=== PATIENT | female | born 1990 | race Asian ===

== ENCOUNTER 2020-01-05 07:43 | Emergency (ER) | payer OTHER ==
[~2020-01-05] VITALS: Ht 157.5 cm; Wt 77.3 kg
[2020-01-05] MEDS ORDERED: methylPREDNISolone SOD SUCC PF 125 MG/2 ML VIAL. ONE (07:59)
--- NOTE | 2020-01-05 08:03 | PHYS DOC ---
Past History Past Medical History: Anxiety, Depression, Ovarian Cyst Past Surgical History: Appendectomy, Cholecystectomy, Tonsillectomy Smoking: Cigarettes Alcohol Use: Rarely Drug Use: None General Adult EDM: Chief Complaint: ALLERGIC REACTION HPI: HPI: Patient is a 29 year old female who presents for evaluation of throat swelling, hives and generalized itching. Patient had initial onset of symptoms 3 days ago. She was treated with Benadryl at that time. Today she states the symptoms worsened and returned and she also has moderate dizziness. Before arrival here she had some mild wheezing. However her vital signs are normal. Cause of this allergic response is unclear. Patient moderately anxious on arrival but did drive herself to the hospital. Patient had been hyperventilating prior to arrival Review of Systems: Review of Systems: Constitutional: Denies fever or chills Eyes: Denies change in visual acuity HENT: Denies nasal congestion mild sore throat Respiratory: Denies cough has mild shortness of breath Cardiovascular: Denies chest pain or edema GI: Denies abdominal pain, nausea, vomiting, bloody stools or diarrhea : Denies dysuria Musculoskeletal: Denies back pain or joint pain Integument: diffuse itching rash Neurologic: Denies headache, focal weakness or sensory changes Endocrine: Denies polyuria or polydipsia Lymphatic: Denies swollen glands Psychiatric: Denies depression has anxiety Heart Score: Risk Factors: Risk Factors: DM, Current or recent (<one month) smoker, HTN, HLP, family history of CAD, obesity. Risk Scores: Score 0 - 3: 2.5% MACE over next 6 weeks - Discharge Home Score 4 - 6: 20.3% MACE over next 6 weeks - Admit for Clinical Observation Score 7 - 10: 72.7% MACE over next 6 weeks - Early Invasive Strategies Physical Exam: PE: Constitutional: Well developed, well nourished, mild acute distress, non-toxic appearance. [] HENT: Normocephalic, atraumatic, bilateral external ears normal, oropharynx moist, no oral exudates, nose normal, no significant posterior pharyngeal edema, redness or swelling [] Eyes: PERRL, EOMI, conjunctiva normal, no discharge. [] Neck: Normal range of motion, no tenderness, supple, no stridor. [] Cardiovascular:Heart rate regular rhythm, no murmur [] Lungs & Thorax: Bilateral breath sounds clear to auscultation [] Abdomen: Bowel sounds normal, soft, no tenderness, no masses, no pulsatile masses. [] Skin: Warm, dry, erythema from sunburn to head and trunk, mild hives diffuse. [] Back: No tenderness. [] Extremities: No tenderness, no cyanosis, no clubbing, ROM intact, no edema. [] Neurologic: Alert and oriented X 3, normal motor function, normal sensory function, no focal deficits noted. [] Psychologic: Affect normal, judgement normal, mood abnormal, moderately anxious on arrival [] Current Patient Data: Labs: Laboratory Tests Test 01/05/20 08:09 01/05/20 08:21 Urine Collection Type Unknown Urine Color Yellow Urine Clarity Clear Urine pH 7.0 Urine Specific [place] 1.020 Urine Protein Neg Urine Glucose (UA) Neg mg/dL Urine Ketones (Stick) Neg mg/dL Urine Blood Trace Urine Nitrite Neg Urine Bilirubin Neg Urine Urobilinogen Dipstick 0.2 mg/dL Urine Leukocyte Esterase Neg Urine RBC 3-5 /HPF Urine WBC Occ /HPF Urine Squamous Epithelial Cells Many /LPF Urine Bacteria 0 /HPF Bedside Urine HCG, Qualitative hcg negative Current Medications Medications (Trade) Dose Ordered Sig/Fritz Route PRN Reason Start Time Stop Time Status Last Admin Dose Admin Methylprednisolone Sodium Succinate (SOLU-Medrol 125MG VIAL) 125 mg 1X ONCE IM 01/05/20 08:10 01/05/20 08:11 DC 01/05/20 08:26 Methylprednisolone Sodium Succinate (SOLU-Medrol 125MG VIAL) 125 mg STK-MED ONCE .ROUTE 01/05/20 07:59 01/05/20 07:59 DC EKG: EKG: [] Radiology/Procedures: Radiology/Procedures: [] Course & Med Decision Making: Course & Med Decision Making Pertinent Labs and Imaging studies reviewed. (See chart for details) [] Dragon Disclaimer: Dragon Disclaimer: This electronic medical record was generated, in whole or in part, using a voice recognition dictation system. Departure Departure: Impression: Primary Impression: Allergic reaction Qualified Codes: T78.40XA - Allergy, unspecified, initial encounter Additional Impressions: Throat swelling Sunburn Disposition: HOME/RESIDENCE PRIOR TO ADM Condition: STABLE Referrals: PCP,NO (PCP) FERDINAND JAY MD Patient Instructions: Allergy Skin Testing, Allergy Tests, Sunburn Additional Instructions: Continues to take either Benadryl or the prescription antihistamine hydroxyzine for itching. Steroids added as well which you could start as early as tomorrow Scripts Hydroxyzine Hcl (HYDROXYZINE HCL) 25 Mg Tablet 1 TAB PO TID for itching, #30 TAB Prov: XIOMARA MURRIETA DO 01/05/20 Methylprednisolone (MEDROL) 4 Mg Tab.ds.pk 1 PKG PO UD for allergies, #1 PKG Prov: XIOMARA MURRIETA DO 01/05/20 Justification of Admission: Justification of Admission: Justification of Admission Dx: N/A XIOMARA MURRIETA DO Jan 05, 2020 08:03
[2020-01-05] MEDS ORDERED: methylPREDNISolone SOD SUCC PF 125 MG/2 ML VIAL. IM ONE (08:10)
[2020-01-05 08:52] LABS: BACTERIA,URINE 0 /HPF (0-FEW); BILIRUBIN,URINE NEG (NEG); CLARITY,URINE CLEAR; COLOR,URINE YELLOW; GLUCOSE,URINE NEG (NEG); NITRITE,URINE NEG (NEG); SQUAMOUS EPITHELIAL CELL,UR MANY /LPF; UROBILINOGEN,URINE 0.2 mg/dL (0.2 mg/dL); WBC,URINE OCC /HPF (0-4)
[2020-01-05 09:00] VITALS: BP 111/66
[2020-01-05] MEDS ORDERED: METH4TAB2 PO (09:01)
[2020-01-05] MEDS ORDERED: HYDR25TA PO (09:01)
== END 2020-01-05 09:11 | disposition home or self-care (01) ==
LOC: ER 07:43
DX: T78.40XA Allergy, unspecified, initial encounter (principal); L55.9 Sunburn, unspecified; J39.2 Other diseases of pharynx; R42 Dizziness and giddiness; F41.9 Anxiety disorder, unspecified; F32.9 Major depressive disorder, single episode, unspecified; F17.210 Nicotine dependence, cigarettes, uncomplicated; X58.XXXA Exposure to other specified factors, initial encounter
CPT/HCPCS: 81001; 81025; 96372; 99283; J2930

== ENCOUNTER 2020-05-02 09:55 | Emergency (ER) | payer OTHER ==
[~2020-05-02] VITALS: Ht 157.5 cm; Wt 77.3 kg
[~2020-05-02 09:55] MED LIST: HYDR25TA PO; METH4TAB2 PO
--- NOTE | 2020-05-02 10:28 | PHYS DOC ---
Past History Past Medical History: Anxiety, Depression, Ovarian Cyst Additional Past Medical Histor: Polycystic ovarian disease Past Surgical History: Appendectomy, Cholecystectomy, Tonsillectomy Smoking: Cigarettes Alcohol Use: Rarely Drug Use: None General Adult EDM: Chief Complaint: n/v HPI: HPI: Patient is a 29-year-old female who began having nausea and vomiting 4 days ago after donating plasma. Patient then began having right flank pain that is currently 5 out of 10 and describes the discomfort. Pain is nonradiating. Pain is worse with activity and movement. Patient denies any focal weakness or numbness. Patient had nausea vomiting to the tune of 12 episodes of the last 4 days. Patient has had some subjective fever and chills as well. Patient also has had hematuria. Patient also describes some vertiginous dizziness and off- balance sensation. These are worse with activity. Review of Systems: Review of Systems: Constitutional: Complains of subjective fever and chills Eyes: Denies change in visual acuity HENT: Denies nasal congestion or sore throat Respiratory: Denies cough or shortness of breath Cardiovascular: Denies chest pain or edema GI: Complains abdominal pain with nausea vomiting but no diarrhea : Denies dysuria Musculoskeletal: Complains of right flank pain Integument: Denies rash Neurologic: Denies headache, focal weakness or sensory changes, complains of dizziness Endocrine: Denies polyuria or polydipsia Lymphatic: Denies swollen glands Psychiatric: Denies depression or anxiety Allergies: Allergies: Allergies Coded Allergies Type Severity Reaction Last Updated Verified prochlorperazine Allergy Unknown 05/02/20 Yes Physical Exam: PE: Constitutional: Well developed, well nourished, no acute distress, non-toxic appearance. [] HENT: Normocephalic, atraumatic, bilateral external ears normal, oropharynx mois t, no oral exudates, nose normal. [] Eyes: PERRLA, EOMI, conjunctiva normal, no discharge. [] Neck: Normal range of motion, no tenderness, supple, no stridor. [] Cardiovascular:Heart rate regular rhythm, no murmur [] Lungs & Thorax: Bilateral breath sounds clear to auscultation [] Abdomen: Bowel sounds normal, soft, no tenderness, no masses, no pulsatile masses. [] Skin: Warm, dry, no erythema, no rash. [] Back: No tenderness, no CVA tenderness. [] Extremities: No tenderness, no cyanosis, no clubbing, ROM intact, no edema. [] Neurologic: Alert and oriented X 3, normal motor function, normal sensory function, no focal deficits noted. [] Psychologic: Affect normal, judgement normal, mood normal. [] EKG: EKG: EKG interpreted by me normal sinus rhythm rate of 77 normal axis normal intervals normal ST segments [] Radiology/Procedures: Radiology/Procedures: [][address] [address] IMAGING REPORT Signed PATIENT: PETER LOPEZ ACCOUNT: [id number] : 1990 LOCATION: ER AGE: 29 SEX: F EXAM STATUS: REG ER ORD. PHYSICIAN: LEÓN BURCH MD REASON: r flank pain, hematuria PROCEDURE: CT ABDOMEN PELVIS WO CONTRAST INDICATION: Reason: r flank pain, hematuria / Spl. Instructions: / History: . COMPARISON: None. TECHNIQUE: Axial CT images obtained through the abdomen and pelvis without contrast. One or more of the following individualized dose reduction techniques were utilized for this examination: 1. Automated exposure control; 2. Adjustment of the mA and/or kV according to patient size; 3. Use of iterative reconstruction technique. FINDINGS: Abdominal aorta is not aneurysmal. Small fat-containing umbilical hernia. No intrahepatic bile duct dilatation. Postcholecystectomy changes. No peripancreatic fluid collection. No perisplenic hematoma. No left-sided hydronephrosis. Urinary bladder partially distended. Nonobstructive right renal stone. Measures approximately 2-3 mm. No hydronephrosis. No periappendiceal inflammatory changes. No dilated loops of bowel to suggest obstruction. IMPRESSION: * Nonobstructive right renal stone without hydronephrosis. * No evidence of appendicitis or bowel obstruction. Electronically signed by: Mindi Jackson MD (05/02/2020 11:38 AM) [id number] DICTATED AND SIGNED BY: MINDI JACKSON MD DATE: 05/02/20 1138 CC: LEÓN BURCH MD; CRESCENCIOYOSHI ~MTH0 [address] [address] IMAGING REPORT Signed PATIENT: PETER LOPEZ ACCOUNT: [id number] : 1990 LOCATION: ER AGE: 29 SEX: F EXAM STATUS: REG ER ORD. PHYSICIAN: LEÓN BURCH MD REASON: dizzy PROCEDURE: PORTABLE CHEST 1V Examination: PORTABLE CHEST 1V History: Reason: dizzy / Comparison/Correlation: None Findings: Portable upright frontal view of the chest was obtained. Heart size and pulmonary vasculature are normal. No infiltrate or effusion. Bony structures are intact. No pneumothorax. Curvilinear densities overlying the left upper paraspinal region are present. These may be external to the patient. Correlate with intervention alternatively. Right upper quadrant surgical clips are present. Impression: No active disease. Electronically signed by: Misael Lauren MD (05/02/2020 11:33 AM) [id number] DICTATED AND SIGNED BY: MISAEL LAUREN MD DATE: 05/02/20 1133 CC: LEÓN BURCH MD; CRESCENCIOYOSHI ~MTH0 0 Heart Score: Risk Factors: Risk Factors: DM, Current or recent (<one month) smoker, HTN, HLP, family history of CAD, obesity. Risk Scores: Score 0 - 3: 2.5% MACE over next 6 weeks - Discharge Home Score 4 - 6: 20.3% MACE over next 6 weeks - Admit for Clinical Observation Score 7 - 10: 72.7% MACE over next 6 weeks - Early Invasive Strategies Course & Med Decision Making: Course & Med Decision Making Pertinent Labs and Imaging studies reviewed. (See chart for details) [] 29-year-old female presents with multiple complaints. Primarily patient has right flank pain with nausea vomiting. Patient has a right renal stone but no ureteral stone. Patient reassessed at 12:38 PM and pain is 0. Patient's work- up is reassuring other than her hematuria. Patient was treated with a antibiotic for hematuria and antiemetics. Patient's otherwise clinically stable and for discharge. Return precautions given Dragon Disclaimer: Dragon Disclaimer: This electronic medical record was generated, in whole or in part, using a voice recognition dictation system. Departure Departure: Impression: Primary Impression: Hematuria Additional Impressions: Right renal stone Nausea & vomiting Dizziness Disposition: 01 DC HOME SELF CARE/HOMELESS Condition: STABLE Referrals: YOSHI PRATHER (PCP) 2-3 days Patient Instructions: Dizziness, Hematuria, Adult, Nausea and Vomiting, Urinary Tract Infection Additional Instructions: EMERGENCY DEPARTMENT GENERAL DISCHARGE INSTRUCTIONS THANK YOU for coming to [facility] Emergency Department (ED) today and trusting us with your care. We trust that you had a positive experience in our Emergency Department. If you wish to speak to the department Management you can contact the emergency department at YOUR FOLLOW UP INSTRUCTIONS ARE FOLLOWS: Do you have a private doctor? If you do not have a private doctor, please ask for a resource list of physicians or clinics that may be able to assist you with follow up care . The Emergency Physician has interpreted your x-rays. The X-ray specialist will also review them. If there is a change in the findings you will be notified in 48 hours when at all possible. A lab test or lab culture may have been done, your results will be reviewed and you will be notified if you need a change in treatment. ADDITIONAL INSTRUCTIONS AND INFORMATION Your care today has been supervised by a physician who is specially trained in emergency care. Many problems require more than one evaluation for a complete diagnosis and treatment. We recommend that you schedule your follow up appointment as recommended to ensure complete treatment of your illness or injury. If you are unable to obtain follow up care and continue to have a problem, or if your condition worsens we recommend that you return to the ED. We are not able to safely determine your condition over the phone nor are we able to give sound medical advice over the phone. For these safety reasons, if you call for medical advice we will ask you to come to the ED for further evaluation If you have any questions regarding these discharge instructions please call the ED at SAFETY INFORMATION In the interest of safety, wellness, and injury prevention; we encourage you to wear your seatbelt, if you smoke; quit smoking, and we encourage your family to use protective helmet for bicycling and other sporting events that present an increased risk for head injury. IF YOUR SYMPTOMS WORSEN OR NEW SYMPTOMS DEVELOP, OR YOU HAVE CONCERNS ABOUT YOUR CONDITION; OR IF YOUR CONDITION WORSENS WHILE YOU ARE WAITING FOR YOUR FOLLOW UP APPOINTMENT; EITHER CONTACT YOUR PRIMARY CARE DOCTOR, THE PHYSICIAN WHOSE NAME AND NUMBER YOU WERE GIVEN, OR RETURN TO THE ED IMMEDIATELY. Scripts Ondansetron Hcl (ZOFRAN) 4 Mg Tablet 1 TAB PO PRN Q6-8HRS for nausea, #12 TAB Prov: LEÓN BURCH MD 05/02/20 Cephalexin (KEFLEX) 500 Mg Capsule 500 MG PO TID for hematuria for 7 Days, #21 TAB Prov: LEÓN BURCH MD 05/02/20 LEÓN BURCH MD May 02, 2020 10:28
[2020-05-02] MEDS ORDERED: IV NORMAL SALINE 1,000ML 1,000 ML IV ONE (10:30)
[2020-05-02] MEDS ORDERED: KETOROLAC 15 MG/ML VIAL. IVP ONE (10:30)
[2020-05-02] MEDS ORDERED: ONDANSETRON PF 4 MG/2 ML VIAL. IVP ONE (10:30)
--- NOTE | 2020-05-02 10:58 | EKG ---
[address] [address] Test Date: 2020-05-02 Test Time: 10:54:00 Pat Name: PETER LOPEZ Department: Room: Gender: F Single Stayer Operator: BERNADETTE : 1990 Requested By: LEÓN BURCH Order Number: [id number] Reading MD: Measurements Intervals [place] Rate: 77 P: 0 IN: 146 QRS: 47 QRSD: 78 T: 29 QT: 362 QTc: 411 Interpretive Statements SINUS RHYTHM NORMAL ECG RI6.02 No previous ECG available for comparison
[2020-05-02 11:12] LABS: BASO % 1 % (0-3); EOS # 0.1 x10^3/uL (0.0-0.7); EOS % 2 % (0-3); HEMATOCRIT 43.3 % (36.0-47.0); HEMOGLOBIN 14.4 g/dL (12.0-15.5); LYMPH # 1.6 x10^3/uL (1.0-4.8); LYMPH % 31 % (24-48); MEAN CORPUSCULAR HEMOGLOBIN 32 pg (25-35); MEAN CORPUSCULAR HGB CONC 33 g/dL (31-37); MEAN CORPUSCULAR VOLUME 95 fL (79-100); MONO # 0.3 x10^3/uL (0.0-1.1); MONO % 7 % (0-9); NEUT # 3.2 x10^3uL (1.8-7.7); NEUT % 60 % (31-73); PLATELET COUNT 218 x10^3/uL (140-400); RED BLOOD COUNT 4.56 x10^6/uL (3.50-5.40); RED CELL DISTRIBUTION WIDTH 12.5 % (11.5-14.5); WHITE BLOOD COUNT 5.3 x10^3/uL (4.0-11.0)
[2020-05-02 11:20] LABS: CALCIUM 9.2 mg/dL (8.5-10.1); CREATININE 0.8 mg/dL (0.6-1.0); GFR 84.8; POTASSIUM 4.1 mmol/L (3.5-5.1)
[2020-05-02 11:25] LABS: ALBUMIN 3.6 g/dL (3.4-5.0); TOTAL BILIRUBIN 0.2 mg/dL (0.2-1.0); TOTAL PROTEIN 7.1 g/dL (6.4-8.2)
--- NOTE | 2020-05-02 11:36 | RAD ---
Examination: PORTABLE CHEST 1V History: Reason: dizzy / Comparison/Correlation: None Findings: Portable upright frontal view of the chest was obtained. Heart size and pulmonary vasculature are normal. No infiltrate or effusion. Bony structures are intact. No pneumothorax. Curvilinear densities overlying the left upper paraspinal region are present. These may be external to the patient. Correlate with intervention alternatively. Right upper quadrant surgical clips are present. Impression: No active disease. Electronically signed by: Misael Ac MD (05/02/2020 11:33 AM) [id number]
--- NOTE | 2020-05-02 11:41 | RAD ---
INDICATION: Reason: r flank pain, hematuria / Spl. Instructions: / History: . COMPARISON: None. TECHNIQUE: Axial CT images obtained through the abdomen and pelvis without contrast. One or more of the following individualized dose reduction techniques were utilized for this examination: 1. Automated exposure control; 2. Adjustment of the mA and/or kV according to patient size; 3. Use of iterative reconstruction technique. FINDINGS: Abdominal aorta is not aneurysmal. Small fat-containing umbilical hernia. No intrahepatic bile duct dilatation. Postcholecystectomy changes. No peripancreatic fluid collection. No perisplenic hematoma. No left-sided hydronephrosis. Urinary bladder partially distended. Nonobstructive right renal stone. Measures approximately 2-3 mm. No hydronephrosis. No periappendiceal inflammatory changes. No dilated loops of bowel to suggest obstruction. IMPRESSION: * Nonobstructive right renal stone without hydronephrosis. * No evidence of appendicitis or bowel obstruction. Electronically signed by: Jose Gonzales MD (05/02/2020 11:38 AM) [id number]
[2020-05-02 11:51] LABS: CLARITY,URINE BLOODY; COLOR,URINE BROWN
[2020-05-02 11:53] LABS: BACTERIA,URINE FEW /HPF (0-FEW); RBC,URINE >40 /HPF (0-2); SQUAMOUS EPITHELIAL CELL,UR MOD /LPF
[2020-05-02] MEDS ORDERED: CEPH-264 PO (12:42)
[2020-05-02] MEDS ORDERED: ONDA4TAB7 PO (12:42)
[2020-05-02 12:44] VITALS: BP 106/58
== END 2020-05-02 12:50 | disposition home or self-care (01) ==
LOC: ER 09:55
DX: N20.0 Calculus of kidney (principal); R11.2 Nausea with vomiting, unspecified; R31.9 Hematuria, unspecified; F17.210 Nicotine dependence, cigarettes, uncomplicated; Z90.89 Acquired absence of other organs; Z90.49 Acquired absence of other specified parts of digestive tract; Z88.8 Allergy status to other drugs, medicaments and biological substances
CPT/HCPCS: 36415; 71045; 74176; 80053; 81001; 83690; 84702; 85025; 93005; 96361; 96374; 96375; 99285; J1885; J2405; J7030